=== PATIENT | female | born 1980 | race Caucasian/White ===

== ENCOUNTER 2025-02-28 03:55 | Emergency (ER) | payer BC, SELFPAY ==
[2025-02-28 03:58] VITALS: BP 144/66
[2025-02-28 04:21] VITALS: BMI 25.3
[2025-02-28 04:54] LABS: % Basophils 0.6 % (0-2); % Eosinophils 0.2 % (0-6); % Immature Granulocytes 0.3 % (0-0.5); % Monocytes 5.6 % (1.7-9.3); % Neutrophils 91.3 % (42.2-75.2); Absolute Basophils 0.1 10^3/uL (0-0.2); Absolute Lymphocytes 0.3 10^3/uL (1.2-3.4); Absolute Monocytes 0.9 10^3/uL (0.1-0.6); Hematocrit 41.6 % (37.0-47.0); Hemoglobin 14.4 g/dL (12.0-16.0); Mean Corp Hgb Conc. 34.6 g/dL (33.0-37.0); Mean Corpuscular Hgb 30.6 pg (27.0-31.0); Mean Corpuscular Volume 88.5 fL (81.0-99.0); Mean Platelet Volume 10.7 fL (7.4-10.4); Nucleated Red Blood Cells % 0 %; Platelet Count 370 10^3/uL (130-400); Red Cell Dist. Width 12.5 % (11.5-14.5); White Blood Cell Count 15.3 10^3/uL (4.8-10.8)
[2025-02-28] MEDS: NSS 1000 IV (05:01)
--- NOTE | 2025-02-28 05:06 | ED.GENMED ---
History of Present Illness
General
Chief Complaint: Abdominal Symptoms
Source: patient
Exam Limitations: none
Time Seen by Provider: 02/28/25 04:47
Nursing documentation reviewed up to this point in time: agreed with
History of Present Illness
History of Present Illness:
This is a 44-year-old woman who presents with acute onset of nausea, vomiting, diarrhea that began around 11 PM. Her 10-year-old daughter has similar symptoms that began an hour and a half after patient's symptoms. They both ate chicken for
dinner. Her son and other daughter are not affected, they were both at basketball practice and missed dinner.
Patient complains of crampy abdominal discomfort and was concerned with watery somewhat black stool. She denies fever nor chills.
Takes no anticoagulants.
Denies risk of .
Past History
Past History
ED Past Medical History: None
ED Past Surgical History: Appendectomy, and Orthopedic
Social History
Tobacco: Non-smoker
Alcohol: None
Personal:
Living: with family
Employment: Employed
Family History
Family History: Other (Noncontributory)
Phy Exam
Physical Exam
Physical Exam:
GENERAL: 44-year-old woman appears her stated age, awake and alert, pleasant, appears in no acute distress.
EYE: anicteric
NECK: Supple, nontender, no meningismus, no significant adenopathy.
ENT: posterior pharynx is clear, oral mucosa is minimally dry. No rhinorrhea.
CARDIAC: Regular rate and rhythm. no murmur.
LUNGS: Clear breath sounds bilaterally, no acute respiratory distress, no wheezes/rales/rhonchi
ABDOMEN: Soft, nondistended, without focal tenderness, no r/g, no cvat. normoactive BS.
NEUROLOGICAL: Alert and oriented x3, no focal neuro deficits. Gait is steady.
SKIN: Warm and dry, normal color, skin intact. No rash.
MUSCULOSKELETAL: No C/C/E. peripheral pulses are full and equal b/l. No palpable tenderness.
PSYCH: Normal and appropriate interaction.
Course
Orders/Labs/Results
Orders:
Orders
02/28/25 04:36
CMP [Comprehensive Metabolic Panel] Urgent
Complete Blood Count/With Diff Urgent
02/28/25 04:40
Ondansetron Injectable [Zofran] 4 mg .ROUTE .[facility]
02/28/25 05:00
0.9% Sodium Chloride 1000 ml [Nss] 1,000 ml IV BOLUS
02/28/25 05:02
Norovirus by PCR Urgent
SHRAVAN Source: Feces/Stool
Specimen Description:
Date Specimen was Collected: 02/28/25
Time Specimen was Collected: 05:09
Stool Culture Urgent
SHRAVAN Source: Feces/Stool
Specimen Description:
Date Specimen was Collected: 02/28/25
Time Specimen was Collected: 05:09
Ondansetron Injectable [Zofran] 4 mg IV NOW STA
Abnormal Lab Results
02/28/25
04:36
WBC 15.3 H 10^3/uL
(4.8-10.8)
MPV 10.7 H fL
(7.4-10.4)
Absolute Neuts (auto) 14.0 H 10^3/uL
(1.4-6.5)
Absolute Lymphs (auto) 0.3 L 10^3/uL
(1.2-3.4)
Absolute Monos (auto) 0.9 H 10^3/uL
(0.1-0.6)
Neutrophils % 91.3 H %
(42.2-75.2)
Lymphocytes % 2.0 L %
(20.5-51.1)
BUN 18 H mg/dl
(7-17)
Glucose 181 H mg/dl
(70-99)
02/28/25 04:36
02/28/25 04:36
Vital Signs
Initial and Last Documented VS:
Initial Vital Signs
Pulse Resp BP Pulse Ox
98 24 144/66 97
02/28/25 03:58 02/28/25 03:58 02/28/25 03:58 02/28/25 03:58
Last Documented Vital Signs
Temp Pulse Resp BP Pulse Ox
97.9 F 78 14 126/61 98
02/28/25 04:24 02/28/25 05:58 02/28/25 05:58 02/28/25 05:58 02/28/25 05:58
MDM/Problems Addressed
Differential Diagnosis Includes:
Patient presents with acute gastroenteritis either viral versus foodborne. 10-year-old daughter with similar symptoms thus bowel obstruction is much less likely.
Hemodynamically stable, afebrile.
Abdominal exam soft, benign.
Will medicate with IV Zofran, initiate IV fluids. Labs are pending.
Will consider imaging depending on clinical course and laboratory studies.
Chronic conditions affecting care: Previous abdomnial surgery
*Pulse Oximetry
Patient hypoxic: no
*Critical Care Note
Total Time (30-74mins, 75-104mins- exclusive of procedures): Not Applicable
Update Note
Update Note:
06:05
Patient feeling markedly improved after 1 L of IV fluids and IV Zofran.
Tolerating sips of water.
Abdomen remains soft without appreciable tenderness.
Labs show mildly elevated white blood cell count of 15, unremarkable chemistries.
Will discharge to home with prescription for Zofran ODT. Lomotil for as needed diarrhea. Recommend limiting diet to clear liquids today, slowly advancing to bland foods tomorrow.
Prompt follow-up with PCP for recheck.
Return precautions discussed.
ED Attending Note
-
Portions of this chart may have been created with voice recognition software.� Occasional wrong word or��sound alike� substitutions may have occurred due to the inherent limitations of voice recognition software.
Discharge Plan
Departure
Patient Disposition: Home (Routine Discharge)
Date of Disposition: 02/28/25
Time of Disposition: 06:05
Patient with high blood pressure during this ER visit?: No
Condition: Good
Discharge Problem:
Acute gastroenteritis
Instructions: Food poisoning, Viral gastroenteritis in adults, Clear Liquid Diet
Prescriptions:
New
diphenoxylate-atropine [Lomotil] 2.5-0.025 mg tablet
1 tab PO QID PRN (Reason: diarrhea) Qty: 10 0RF
ondansetron 4 mg tablet,disintegrating
4 mg PO QID PRN (Reason: nausea and vomiting) Qty: 20 0RF
No Action
norgestimate-ethinyl estradiol [Gloria] 0.25-0.035 mg Tablet
1 tab PO DAILY
Referrals:
Cori Ragsdale DO [Family Provider] - Call in 1-3 days for appt
Interventions
Interventions:
*Risk Screen - Suicide Last Done: 02/28/25 03:58
*General Assessment Last Done: 02/28/25 04:24
*Neglect/Abuse Screening Last Done: 02/28/25 03:58
*ED- Fall Risk Assessment Last Done: 02/28/25 04:33
*ED COVID-19 Vaccine History Last Done: 02/28/25 04:33
YT-Ufzufk-Fwpnfhkwzb Assessment Last Done: 02/28/25 04:24
ED- Cardiac Assessment Last Done: 02/28/25 04:24
ED- Neurological Assessment Last Done: 02/28/25 04:24
Discharge Date and Time
Print Language: MALAWIAN
[2025-02-28] MEDS: ZOFRAN 4 MG IV ×2 (05:07→06:33)
[2025-02-28 05:10] LABS: ALT (SGPT) 20 U/L (0-35); AST (SGOT) 27 U/L (14-36); Albumin 4.4 g/dl (3.5-5.0); Alkaline Phosphatase 53 U/L (38-126); Blood Urea Nitrogen 18 mg/dl (7-17); Calcium 9.8 mg/dl (8.4-10.2); Carbon Dioxide 23 mmol/L (22-30); Chloride 104 mmol/L (98-107); Estimated Creatinine Clearance 118 ml/min; Glucose 181 mg/dl (70-99); Potassium 4.5 mmol/L (3.5-5.1); Sodium 140 mmol/L (135-145); Total Protein 7.4 g/dl (6.3-8.2); eGFR > 60.00
[2025-02-28 05:58] VITALS: BP 126/61
== END 2025-02-28 06:40 | disposition home or self-care (01) ==
LOC: EMR 03:55
PROVIDERS: EMERGENCY PHYSICIAN Emergency Medicine; FAMILY PHYSICIAN Family Medicine
DX: K52.9 Noninfective gastroenteritis and colitis, unspecified (principal); R11.2 Nausea with vomiting, unspecified; R19.7 Diarrhea, unspecified; Z86.16 Personal history of COVID-19
CPT/HCPCS: 99284; 96374; 96361; 96376; 80053; 85025; 87045; 87046; 87427; 87798

== ENCOUNTER → 2025-04-12 11:05 | Outpatient (REF) | payer BC, SELFPAY | LOC: WDC 11:05 | PROVIDERS: ATTENDING PHYSICIAN Obstetrics & Gynecology Gynecology | DX: Z12.31 Encounter for screening mammogram for malignant neoplasm of breast (principal) | CPT/HCPCS: 77063; 77067 ==